=== PATIENT | female | born 1945 | race Caucasian/White ===

== ENCOUNTER 2017-03-07 10:37 | Emergency (ER) | payer MEDICARE ==
[~2017-03-07] VITALS: Ht 167.6 cm; Wt 53.0 kg
[2017-03-07 10:41] VITALS: BP 114/72; PULSE 80; RESP 15; TEMP 97.9; O2SAT 98
[2017-03-07] MEDS ORDERED: ESCI10TA PO (10:44)
--- NOTE | 2017-03-07 11:38 | PD ---
HPI Chief Complaint: Psychiatric Symptoms Time Seen by Provider: 11:38 Travel History International Travel<30 days: No Contact w/Intl Traveler<30days: No Traveled to known affect area: No History of Present Illness HPI 71-year-old female brought in by her [id number] and friend with reports of generalized weakness, depression, and question suicidality. Patient was seen by her primary care doctor Dr. Rossi on Saturday and started on Lexapro 10 mg daily. Patient has history of dealing with her who was recently diagnosed with cancer 2 months ago, was just moved to hospice in the skilled nursing in the last week. Patient has not been eating or sleeping, and has become more and more despondent. Patient denies any chronic medical issues. Her only medication is Lexapro. She is Vegan, but has not been eating as she has no appetite. Patient denies any fever, chills, headache, syncope, abdominal pain other than mild nausea, no diarrhea or urinary symptoms. She has no chest pain or shortness of breath. Patient and caregivers explained that patient had similar episode 13 years ago when her brother had medical issues. She denies suicidality at this time, but caregivers are concerned about her, and feel that she may be. She has no known drug allergies. PFSH Past Medical History ?: Not Social History Alcohol Use: No Tobacco Use: No Substance Use: No Allergies-Medications (Allergen,Severity, Reaction): Coded Allergies: No Known Allergies (Unverified , 03/07/17) Reported Meds & Prescriptions Reported Meds & Active Scripts Active Reported Escitalopram (Escitalopram Oxalate) 10 Mg Tab 10 Mg PO DAILY Review of Systems Except as stated in HPI: all other systems reviewed are Neg General / Constitutional: No: Fever, Chills Eyes: No: Visual changes HENT: No: Headaches Cardiovascular: No: Chest Pain or Discomfort Respiratory: No: Shortness of Breath Gastrointestinal: No: Abdominal Pain Genitourinary: No: Dysuria Musculoskeletal: No: Pain Skin: No Rash Neurologic: Positive: Weakness (generalized) Psychiatric: Positive: Depression, Other (desponded and), No: Homicidal Ideation Endocrine: No: Polydipsia Hematologic/Lymphatic: No: Easy Bruising Physical Exam Narrative GENERAL: Patient appears weak and pale SKIN: Warm and dry. Poor turgor. Mild to moderate tenting. Moderate pallor. HEAD: Atraumatic. Normocephalic. EYES: Pupils equal and round. No scleral icterus. No injection or drainage. ENT: No nasal bleeding or discharge. Mucous membranes pink and moist. Pharynx is clear. Airway is patent. NECK: Trachea midline. No JVD. CARDIOVASCULAR: Regular rate and rhythm. No murmurs gallops or rubs. RESPIRATORY: No accessory muscle use. Clear to auscultation. Breath sounds equal bilaterally. GASTROINTESTINAL: Abdomen soft, non-tender, nondistended. Hepatic and splenic margins not palpable. MUSCULOSKELETAL: Extremities without clubbing, cyanosis, or edema. No obvious deformities. NEUROLOGICAL: Awake and alert. No obvious cranial nerve deficits. Motor grossly within normal limits. Five out of 5 muscle strength in the arms and legs. Normal speech. PSYCHIATRIC: Patient appears despondent, with obvious lack of self-care. Patient has poor eye contact, and has dulled and slowed reaction. Data Data Last Documented VS Vital Signs Date Time Temp Pulse Resp B/P Pulse Ox O2 Delivery O2 Flow Rate FiO2 03/07/17 12:30 99 Room Air 03/07/17 10:41 97.9 80 15 114/72 Orders Electrocardiogram (03/07/17 11:50) Complete Blood Count With Diff (03/07/17 11:50) Comprehensive Metabolic Panel (03/07/17 11:50) Magnesium (Mg) (03/07/17 11:50) Ckmb (Isoenzyme) Profile (03/07/17 11:50) Troponin I (03/07/17 11:50) Act Partial Throm Time (Ptt) (03/07/17 11:50) Prothrombin Time / Inr (Pt) (03/07/17 11:50) Urinalysis - C+S If Indicated (03/07/17 11:50) Chest, Single Ap (03/07/17 11:50) Ecg Monitoring (03/07/17 11:50) Iv Access Insert/Monitor (03/07/17 11:50) Oximetry (03/07/17 11:50) Sodium Chloride 0.9% Flush (Ns Flush) (03/07/17 12:00) Sodium Chlor 0.9% 1000 Ml Inj (Ns 1000 M (03/07/17 11:50) Psych Screen (03/07/17 13:38) Diet Regular Basic (03/07/17 Lunch) Labs Laboratory Tests Test 03/07/17 03/07/17 03/07/17 12:20 12:30 13:15 White Blood Count 8.2 TH/MM3 Red Blood Count 4.57 MIL/MM3 Hemoglobin 14.3 GM/DL Hematocrit 41.2 % Mean Corpuscular Volume 90.1 FL Mean Corpuscular Hemoglobin 31.2 PG Mean Corpuscular Hemoglobin 34.6 % Concent Red Cell Distribution Width 12.4 % Platelet Count 246 TH/MM3 Mean Platelet Volume 8.9 FL Neutrophils (%) (Auto) 73.9 % Lymphocytes (%) (Auto) 18.6 % Monocytes (%) (Auto) 6.4 % Eosinophils (%) (Auto) 0.7 % Basophils (%) (Auto) 0.4 % Neutrophils # (Auto) 6.0 TH/MM3 Lymphocytes # (Auto) 1.5 TH/MM3 Monocytes # (Auto) 0.5 TH/MM3 Eosinophils # (Auto) 0.1 TH/MM3 Basophils # (Auto) 0.0 TH/MM3 CBC Comment DIFF FINAL Differential Comment Sodium Level 138 MEQ/L Potassium Level 4.3 MEQ/L Chloride Level 103 MEQ/L Carbon Dioxide Level 27.1 MEQ/L Anion Gap 8 MEQ/L Blood Urea Nitrogen 12 MG/DL Creatinine 0.73 MG/DL Estimat Glomerular Filtration 79 ML/MIN Rate Random Glucose 87 MG/DL Calcium Level 8.9 MG/DL Magnesium Level 2.3 MG/DL Total Bilirubin 0.7 MG/DL Aspartate Amino Transf 19 U/L (AST/SGOT) Alanine Aminotransferase 13 U/L (ALT/SGPT) Alkaline Phosphatase 116 U/L Total Creatine Kinase 47 U/L Troponin I LESS THAN 0.02 NG/ML Total Protein 6.6 GM/DL Albumin 3.7 GM/DL Urine Color YELLOW Urine Turbidity HAZY Urine pH 6.5 Urine Specific [place] 1.019 Urine Protein TRACE mg/dL Urine Glucose (UA) NEG mg/dL Urine Ketones 10 mg/dL Urine Occult Blood TRACE Urine Nitrite NEG Urine Bilirubin NEG Urine Urobilinogen LESS THAN 2.0 MG/DL Urine Leukocyte Esterase TRACE Urine RBC 2 /hpf Urine WBC 3 /hpf Urine Squamous Epithelial 1 /hpf Cells Urine Mucus MANY /lpf Microscopic Urinalysis Comment CULT NOT INDICATED Prothrombin Time 11.3 SEC Prothromb Time International 1.0 RATIO Ratio Activated Partial 24.3 SEC Thromboplast Time MDM Medical Decision Making Medical Screen Exam Complete: Yes Emergency Medical Condition: Yes Differential Diagnosis Emotional fatigue. Depression. Suicidal ideation. Anemia. Dehydration. Narrative Course Patient is felt to be medically stable at time of exam. Labs ordered including CT, CMP, cardiac panel, PT PTT and INR, urinalysis. EKG and chest x-ray are ordered. IV access is obtained patient is given 1000 mL normal saline bolus. CBC is unremarkable. Chest x-ray is unremarkable for acute process per radiologist. EKG shows normal sinus rhythm without significant acute changes. This reviewed with Dr. Walton. CMP, cardiac panel, PT PTT and INR, and urinalysis are all within normal limits. Patient is cleared for psychiatric evaluation. Diagnosis Primary Impression: Depression Qualified Code: F32.9 - Reactive depression Additional Impression: Medical clearance for psychiatric admission Condition: Stable Jose G Alonso Mar 07, 2017 11:38
[2017-03-07] MEDS ORDERED: SODIUM CHLOR 0.9% 1000 ML INJ 1,000 ML IV ONE (11:50)
[2017-03-07] MEDS ORDERED: SODIUM CHLORIDE 0.9% FLUSH 10 ML FLUSH IVF PRN (12:00)
[2017-03-07 12:30] VITALS: O2SAT 99
--- NOTE | 2017-03-07 12:33 | RADRPT ---
EXAM DATE/TIME: 03/07/2017 12:07 [facility] COMPARISON: No previous studies available for comparison. INDICATIONS : Palpitations, no appetite MEDICAL HISTORY : None. SURGICAL HISTORY : None. ENCOUNTER: Initial ACUITY: 1 day PAIN SCORE: 0/10 LOCATION: Bilateral chest FINDINGS: The heart and mediastinal structures are normal. The pulmonary vascular pattern is normal. The lung s are clear. Degenerative changes and scoliosis of the thoracic spine are noted. CONCLUSION: 1. No acute cardiopulmonary disease. 2. Degenerative changes and scoliosis of the thoracic spine. Cash Urrutia MD on March 07, 2017 at 12:12 Board Certified Radiologist. This report was verified electronically.
[2017-03-07 12:56] LABS: BASOPHIL % 0.4 % (0.0-2.0); EOSINOPHIL # 0.1 TH/MM3 (0-0.4); EOSINOPHIL % 0.7 % (0.0-4.0); HEMATOCRIT 41.2 % (35.0-46.0); HEMO FLAGS DIFF FINAL; LYMPH % 18.6 % (9.0-44.0); LYMPHOCYTE # 1.5 TH/MM3 (1.0-4.8); MEAN CELL VOLUME 90.1 FL (80.0-100.0); MEAN CORPUSCULAR HEMOGLOBIN 31.2 PG (27.0-34.0); MEAN CORPUSCULAR HGB CONC 34.6 % (32.0-36.0); MONO % 6.4 % (0.0-8.0); NEUT % 73.9 % (16.0-70.0); PLATELET COUNT 246 TH/MM3 (150-450); RED BLOOD COUNT 4.57 MIL/MM3 (4.00-5.30); RED CELL DISTRIBUTION WIDTH 12.4 % (11.6-17.2); WHITE BLOOD COUNT 8.2 TH/MM3 (4.0-11.0)
[2017-03-07 13:16] LABS: ALKALINE PHOSPHATASE 116 U/L (45-117); ALT (GPT) 13 U/L (10-53); ANION GAP 8 MEQ/L (5-15); AST (GOT) 19 U/L (15-37); BICARBONATE 27.1 MEQ/L (21.0-32.0); BLOOD UREA NITROGEN 12 MG/DL (7-18); CHLORIDE 103 MEQ/L (98-107); GLOMERULAR FILTRATION RATE 79 ML/MIN (>89); MAGNESIUM 2.3 MG/DL (1.5-2.5); SODIUM (NA) 138 MEQ/L (136-145); TOTAL BILIRUBIN ADULT 0.7 MG/DL (0.2-1.0)
[2017-03-07 13:17] LABS: CREATINE KINASE 47 U/L (26-192); POTASSIUM 4.3 MEQ/L (3.5-5.1)
[2017-03-07 13:20] LABS: BLOOD, URINE TRACE (NEG); COMMENT (UR) CULT NOT INDICATED; CULTURE IF INDICATED CULT NOT INDICATED; GLUCOSE,URINE NEG (NEG); KETONE, URINE 10 mg/dL (NEG); MUCUS URINE MANY /lpf (OCC); NITRITE,URINE NEG (NEG); PH, URINE 6.5 (5.0-8.5); SQUAMOUS EPITHELIAL CELL URINE 1 /hpf (0-5); URINE COLOR YELLOW (YELLW/STRAW)
[2017-03-07 13:49] LABS: APTT (PATIENT) 24.3 SEC (24.3-30.1); PROTHROMBIN TIME - PATIENT 11.3 SEC (9.8-11.6)
[2017-03-07 15:52] VITALS: BP 117/68; PULSE 74; RESP 16; O2SAT 98
[2017-03-07 19:00] VITALS: BP 127/71; PULSE 99; RESP 16
[2017-03-07 22:00] VITALS: BP 133/58; PULSE 94; RESP 18; O2SAT 97
[2017-03-08 02:24] VITALS: BP 114/74; PULSE 75; RESP 18; O2SAT 98
[2017-03-08 06:00] VITALS: BP 119/67; PULSE 79; RESP 18; O2SAT 97
--- NOTE | 2017-03-08 09:31 | PD.CONS ---
Provisional Diagnosis Admission Date [place] I. Adjustment disorder with depressed mood [place] II. deferred [place] III. Osteoporosis [place] IV. was recently diagnosed with terminal cancer [place] V. 55 History of Present Illness Service Psychiatry Consult Requested By Primary Care Physician Maris Wolf MD HPI The patient is a 71-year-old woman, domiciled in the [facility] with her , was recently diagnosed with terminal cancer, retired, with psychiatric history of depression, 1 previous suicidal attempts, one previous psychiatric hospitalization, she is on Lexapro 10 mg prescribed by PCP, medical history of osteoporosis, who was brought in by her [id number] and friend with reports of generalized weakness, depression, and question suicidality. Patient was seen by her primary care doctor Dr. Rossi on Saturday and started on Lexapro 10 mg daily. Patient has history of dealing with her who was recently diagnosed with terminal cancer 2 months ago, was just moved to hospice in the custodial in the last week. As per collateral information from Liset Villatoro, sister in [facility], contacted by me by phone, the patient has not been eating or sleeping, has not been eating enough, has been very depressed, and has voiced that she preferred to be definitely. Family member has become very concerned because patient in the past when her brother was diagnosed with a similar cancer tried to commit suicide by overdose and was hospitalized for about 4 days. Patient has been in a lot of stress in the last 3 weeks. On psychiatric evaluation today patient is found sleeping in her room , calm and cooperative, very pleasant. Patient states that she has been feeling very sad everyday and feeling very angry with life for the last 6 weeks since her was diagnosed with cancer, but especially in the last 3 weeks with her has decided not to pursue treatment and be transferred to hospice. Patient stated that she has had the same sensation she had 13 years ago when her only brother was also diagnosed with cancer and she felt desperate and overdosed. However, she says that she will never do that, she doesn't want to , she says that she has many good years ahead to live, but she cannot avoid to feel sad and the situation. She denies hopelessness, she denies helplessness, she denies worthlessness, she reports poor appetite, but at same time she says that she is a poor eater anyway. Her sleep was disrupted a couple weeks ago, but in the last days she has been sleeping better. She denies suicidal and homicidal ideation. She denies visual and auditory hallucinations. She also says that she things that she is learning how to accept the diagnosis of her and the fact that he is going to soon, "and I want to be with him, helping him". Patient is fully oriented 3, without any attention deficit, without fluctuation of consciousness, no gross cognitive impairment is observed. No agitation, aggressive behavior, paranoia or delusion observed. Patient denies the use of drugs and alcohol. Review of Systems Constitutional: DENIES: Diaphoretic episodes, Fatigue, Fever, Weight gain, Weight loss, Chills, Dizziness, Change in appetite, Night Sweats Endocrine: DENIES: Abnorml menstrual pattern, Heat/cold intolerance, Polydipsia , Polyuria, Polyphagia Eyes: DENIES: Blurred vision, Diplopia, Eye inflammation, Eye pain, Vision loss , Photosensitivity, Double Vision Ears, nose, mouth, throat: DENIES: Tinnitus, Hearing loss, Vertigo, Nasal discharge, Oral lesions, Throat pain, Hoarseness, Ear Pain, Running Nose, Epistaxis, Sinus Pain, Toothache, Odynophagia Cardiovascular: DENIES: Chest pain, Palpitations, Syncope, Dyspnea on Exertion , PND, Lower Extremity Edema, Orthopnea, Claudication Gastrointestinal: DENIES: Abdominal pain, Black stools, Bloody stools, Constipation, Diarrhea, Nausea, Vomiting, Difficulty Swallowing, Anorexia Musculoskeletal: DENIES: Joint pain, Muscle aches, Stiffness, Joint Swelling, Back pain, Neck pain Integumentary: DENIES: Abnormal pigmentation, Pruritus, Rash, Nail changes, Breast masses, Breast skin changes, Nipple discharge Hematologic/lymphatic: DENIES: Bruising, Lymphadenopathy Immunologic/allergic: DENIES: Eczema, Urticaria Neurologic: DENIES: Abnormal gait, Headache, Localized weakness, Paresthesias, Seizures, Speech Problems, Tremor, Poor Balance Psychiatric: DENIES: Anxiety, Confusion, Mood changes, Depression, Hallucinations, Agitation, Suicidal Ideation, Homicidal Ideation, Delusions Past Family Social History Coded Allergies: No Known Allergies (Unverified , 03/07/17) Reported Medications Escitalopram 10 Mg Tab10 Mg PO DAILY #30 TAB Ref 0 03/07/17 Current Medications Medications (Trade) Dose Ordered Sig/Usama Route Start Time Stop Time Status Last Admin (NS Flush) 2 ml UNSCH PRN IVF 03/07/17 12:00 Family History She denies Social History Patient was born and raised in [place], she has been living in [place] for 20 years, she lives in [facility] with her , she has no kids, she has some family members around, highest level of education is high school Patient's Strengths (min. 2) Family support, verbal communication Physical Exam On physical exam no psychomotor retardation or agitation, no tremors, no EPS, no rigidity or stiffness, no visible skin rash or lesions, no eyes problems, no gait abnormalities Vital Signs Vital Signs Date Time Temp Pulse Resp B/P Pulse Ox O2 Delivery O2 Flow Rate FiO2 03/08/17 06:00 79 18 119/67 97 Room Air 03/07/17 10:41 97.9 Lab Results Toxicology is negative Mental Status Examination Appearance woman, age appearing, good hygiene, [employer], she is calm, cooperative and pleasant Speech: Unremarkable, Slow Orientation: x3 Memory: Remote Thought Process: Logical, Linear Thought Content: Unremarkable Hallucination Type: None Suicidal Ideation: No Previous Suicide Attempts: Yes Homicidal Ideation: No Judgment: WNL Affect: Euthymic Mood: Appropriate Motor Activity: Normal gait Assessment & Plan Problem List: (1) Adjustment disorder with depressed mood Assessment & Plan: On psychiatric evaluation today the patient reports about 6 weeks of basic daily sadness, frequent crying spells, episodes of hopelessness and helplessness, frustration and anger, frequent anxiety, poor appetite, disrupted sleep in the context of the diagnosis of terminal cancer in her . Patient has expressed suicidal thoughts, but no intention to . Patient was started on Lexapro 10 mg by PCP. [id number]'s high risk concerned because in the past patient has tried to commit suicide in a very similar situation. Even though I understand the patient may have difficulties dealing with stressful situation and she could be a poor coper, depressive symptoms in the situations are absolutely normal and expected and are part of the mourning process. Patient does not meet criteria for psychiatric admission at this moment. Patient would benefit of close monitoring by a mental health professional in outpatient basis and most probably increasing Lexapro to 20 mg. A referral will be given to her. Extensive psychoeducation, motivation and support was provided. Safety plan was discussed with the patient and also with [id number]. Both, verbalized agreement and understanding with plan. Patient was finally discharged back home with her [id number]. ICD Code: F43.21 Assessment & Plan Estimated LOS: days Malikc Christy MD Mar 08, 2017 09:31
--- NOTE | 2017-03-08 18:46 | EKG ---
Date Performed: 03/07/2017 Time Performed: 12:11:09 PTAGE: 71 years EKG: Sinus rhythm NORMAL ECG INTERPRETATION BASED ON A DEFAULT AGE OF 40 YEARS NO PREVIOUS TRACING DOCTOR: David Sanchez Interpretating Date/Time 03/08/2017 18:41:00
== END 2017-03-08 11:45 | disposition home or self-care (01) ==
LOC: NEPE 10:37 → NEPJ 03-08 11:45
DX: F32.9 Major depressive disorder, single episode, unspecified (principal); F43.21 Adjustment disorder with depressed mood; R53.1 Weakness
CPT/HCPCS: 71010; 80053; 81001; 82550; 83735; 84484; 85025; 85610; 85730; 93005; 96360; 99285; J7030

== ENCOUNTER 2017-03-10 10:59 | Inpatient (IN) | payer MEDICARE ==
[~2017-03-10] VITALS: Ht 167.6 cm; Wt 52.3 kg
[~2017-03-10 10:59] MED LIST: ESCI10TA PO
[2017-03-10 11:01] VITALS: BP 135/73; PULSE 78; RESP 16; TEMP 97.6; O2SAT 99
[2017-03-10 14:20] VITALS: BP 132/72; PULSE 75; RESP 16; O2SAT 99
--- NOTE | 2017-03-10 14:46 | PD ---
HPI Chief Complaint: Psychiatric Symptoms Time Seen by Provider: 12:11 Travel History International Travel<30 days: No Contact w/Intl Traveler<30days: No Traveled to known affect area: No History of Present Illness HPI Patient is a 71-year-old female presents emergency department today for depression. Apparently the patient's was just diagnosed with terminal cancer and has been placed in a hospice facility and she's been quite depressed over this. The family relates to me that something very similar happen to her in the past 1 another relative became very sick. The patient was actually evaluated by psychiatry earlier this week was started on Lexapro and instructions to come back if she felt increasingly depressed or suicidal. Patient denies any suicidal or homicidal ideations. The family states that she is looking for something that will cure her quickly. Patient denies any physical complaints denies any chest pain abdominal pain nausea vomiting diarrhea headaches extremity pain. PFSH Past Medical History Depression: Yes Social History Alcohol Use: No Tobacco Use: No Substance Use: No (PT DENIES) Allergies-Medications (Allergen,Severity, Reaction): Coded Allergies: No Known Allergies (Unverified , 03/10/17) Reported Meds & Prescriptions Reported Meds & Active Scripts Active Reported Escitalopram (Escitalopram Oxalate) 10 Mg Tab 10 Mg PO DAILY Review of Systems Except as stated in HPI: all other systems reviewed are Neg Physical Exam Narrative GENERAL: Well-developed but thin in no apparent distress. SKIN: Focused skin assessment warm/dry. HEAD: Atraumatic. Normocephalic. EYES: Pupils equal and round. No scleral icterus. No injection or drainage. ENT: No nasal bleeding or discharge. Mucous membranes pink and moist. NECK: Trachea midline. No JVD. CARDIOVASCULAR: Regular rate and rhythm. No murmur appreciated. RESPIRATORY: No accessory muscle use. Clear to auscultation. Breath sounds equal bilaterally. GASTROINTESTINAL: Abdomen soft, non-tender, nondistended. Hepatic and splenic margins not palpable. MUSCULOSKELETAL: No obvious deformities. No clubbing. No cyanosis. No edema. NEUROLOGICAL: Awake and alert. No obvious cranial nerve deficits. Motor grossly within normal limits. Normal speech. PSYCHIATRIC: Depressed mood, depressed affect; insight and judgment normal. No suicidal homicidal ideation Data Data Last Documented VS Vital Signs Date Time Temp Pulse Resp B/P Pulse Ox O2 Delivery O2 Flow Rate FiO2 03/10/17 14:20 75 16 132/72 99 Room Air 03/10/17 11:01 97.6 Orders Psych Screen (03/10/17 12:20) Admit Order (Ed Use Only) (03/10/17 ) Admit To Inpatient Psych (03/10/17 ) Code Status (03/10/17 19:31) Vital Signs (Adult) AGUSTINA.Q12H.E (03/10/17 19:31) Activity Oob Ad Veena (03/10/17 19:31) Level Of Observation (Psych) (03/10/17 19:31) Acetaminophen (Tylenol) (03/10/17 20:00) Magnesium Hydroxide Liq (Milk Of Magnesi (03/10/17 20:00) Al-Mag Hy-Si 40-40-4 Mg/Ml Liq (Mag-Al P (03/10/17 20:00) Basic Metabolic Panel (Bmp) (03/11/17 06:00) Lipid Profile (03/11/17 06:00) Hemoglobin (Hgb) A1c (03/11/17 06:00) MDM Medical Decision Making Medical Screen Exam Complete: Yes Emergency Medical Condition: Yes Differential Diagnosis Depression, adjustment disorder, bipolar Narrative Course Patient 71-year-old female presents to the primary for depression. Patient has a history that her was recently diagnosed with terminal cancer and she' s been depressed over this. She was recently seen by psych and told to come back of her symptoms have been worse. Patient has been very low functioning at home has been anhedonic and not been functioning well or eating well. She is here with her family members who would like her to seem psychiatry per she is here voluntary status. Denies any suicidal or homicidal ideations. Patient denies blood work at this time. Patient does not meet Huerta act criteria and I would consider a battery to force her into blood work. I have tried to talk her into which she declines. She was here yesterday and did have blood work yesterday and I doubt that a significant change from then. She does not have any physical complaints and wants further workup at this time. Patient ismedically cleared for psychiatric evaluation and disposition. Diagnosis Primary Impression: Adjustment disorder with depressed mood Condition: Stable Cash Herman MD Mar 10, 2017 14:46
[2017-03-10] MEDS ORDERED: MAGNESIUM HYDROXIDE SUSP 30 ML CUP PO PRN (20:00)
[2017-03-10] MEDS ORDERED: ALUMINUM/MAGNESIUM/SIMETH 30 ML CUP PO PRN (20:00)
[2017-03-10] MEDS ORDERED: ACETAMINOPHEN 325 MG TAB PO PRN (20:00)
[2017-03-10 20:10] VITALS: BP 153/75; PULSE 61; RESP 18; TEMP 98; O2SAT 100
[2017-03-11 05:00] VITALS: BP_SYST 102; BP_SYST 126; BP_DIAS 72; BP_DIAS 76; PULSE 73; PULSE 85; RESP 18; TEMP 97.8; TEMP 98; O2SAT 96
--- NOTE | 2017-03-11 16:20 | HHI.HP ---
Provisional Diagnosis Admission Date Mar 10, 2017 at 19:33 [place]. Adjustment disorder with mixed disturbance of emotion and conduct. Certification of Person's Competence To Provide Express and Informed Consent I have personally examined Rosa Villatoro , a person being served at [facility] on, Mar 11, 2017 16:12. Express and informed consent means consent voluntarily given in writing, by a competent person, after sufficient explanation and disclosure of the subject matter involved to enable the person to make a knowing and willful decision without any element of force, fraud, deceit, duress, or other form of constraint or coercion. This person is 18 years of age or older, is not now known to be incompetent to consent to treatment with a guardian advocate, and does not have a health care surrogate or proxy currently making medical treatment decisions. I have found this person to be one of the following: [X] Competent to provide express and informed consent, as defined above, for voluntary admission to this facility and is competent to provide express and informed consent for treatment. He/she has the consistent capacity to make well reasoned, willful, and knowing decisions concerning his or her medical or mental health treatment. The person fully and consistently understands the purpose of the admission for examination/placement and is fully capable of personally exercising all rights assured [place] Incompetent to provide express and informed consent to voluntary admission, and this is incompetent to provide express and informed consent to treatment. The person must be transferred to involuntary status and a petition for a guardian advocate filed with the Circuit Court. [] Refusing to provide express and informed consent to voluntary admission but is competent to provide express and informed consent for treatment. The person must be discharged or transferred to involuntary status. Form shall be completed within 24 hours of a person's arrival at the receiving facility and filed in the clinical record of each person: 1. Admitted on a voluntary basis 2. Permitted to provide express and informed consent to his/her own treatment 3. Allowed to transfer from involuntary to voluntary status 4. Prior to permitting a person to consent to his or her own treatment after having been previously found incompetent to consent to treatment. History of Present Illness Capacity: Has Capacity HPI This is a 71-year-old female whose was recently moved to hospice for terminal cancer, admitted voluntarily for inability to care for herself. She was encouraged to sign herself into the hospital by her family, even though she is not suicidal or homicidal. Additionally, she started Lexapro approximately 10 days ago but has not given it time to work. She was on Lexapro some years ago and it did work so this physician wants to restart her as soon as possible. Patient acknowledges symptoms of depressed mood, anhedonia, anxiety, social withdrawal, diminished energy, decreased self-esteem, impaired concentration, initial and middle insomnia, etc. According to patient's family, she has also become depressed and lost her energy when another relative in the past. Patient does not have a history of alcohol or drug abuse. She does repeatedly want to speak with this physician to make sure this physician knows everything that is wrong with her. Review of Systems ROS Limitations: Clinical Condition Past Psych History Psychological trauma history Denied Violence risk - others (6 mos) Minimal Violence risk - self (6 mos) Minimal Substance Abuse History Drugs/Alcohol past 12 months Denied Past Family Social History Coded Allergies: No Known Allergies (Unverified , 03/10/17) Reported Medications Escitalopram 10 Mg Tab10 Mg PO DAILY #30 TAB Ref 0 03/07/17 Current Medications Medications (Trade) Dose Ordered Sig/Usama Route Start Time Stop Time Status Last Admin (Tylenol) 650 mg Q4H PRN PO 03/10/17 20:00 (Milk Of Magnesia Liq) 30 ml DAILY PRN PO 03/10/17 20:00 (Mag-Al Plus Susp Liq) 30 ml Q6H PRN PO 03/10/17 20:00 Family History Positive for anxiety disorders. Social History for 50+ years. dying of terminal cancer. Patient does not have history of alcohol or substance abuse. Patient's Strengths (min. 2) Verbal and has access to healthcare. Physical Exam GENERAL: SKIN: Warm and dry. HEAD: Normocephalic. EYES: No scleral icterus. No injection or drainage. NECK: Supple, trachea midline. No JVD or lymphadenopathy. CARDIOVASCULAR: Regular rate and rhythm without murmurs, gallops, or rubs. RESPIRATORY: Breath sounds equal bilaterally. No accessory muscle use. GASTROINTESTINAL: Abdomen soft, non-tender, nondistended. MUSCULOSKELETAL: No cyanosis, or edema. BACK: Nontender without obvious deformity. No CVA tenderness. Vital Signs Vital Signs Date Time Temp Pulse Resp B/P Pulse Ox O2 Delivery O2 Flow Rate FiO2 03/11/17 05:00 97.8 85 18 126/76 03/11/17 05:00 96 03/10/17 14:20 Room Air Mental Status Examination Speech: Unremarkable Orientation: x3 Memory: Unremarkable Thought Process: Organized, Goal Directed Thought Content: Unremarkable Hallucination Type: None Attention and Concentration: Good Suicidal Ideation: No Previous Suicide Attempts: Yes Homicidal Ideation: No Previous Homicide Attempts: No Insight: Fair Judgment: WNL Affect: Anxious, Sad Mood: Sad, Anxious Motor Activity: Normal gait Assessment & Plan Problem List: (1) Adjustment disorder with mixed disturbance of emotions and conduct ICD Code: F43.25 Assessment & Plan Estimated LOS: 3 days patient to be restarted on Lexapro 10 mg per day and increase to 20 mg by time of discharge. She will be engaged in individual, group therapies. Family to be contacted for additional information. Patient to have EKG workup to prevent cardiac conduction difficulties from psychotropic medicines. This physician spoke with the nurse regarding the patient's depression and behavior. boom worker will be asked to gather information from family. William Alvarado MD Mar 11, 2017 16:20
[2017-03-11] MEDS: ESCITALOPRAM OXALATE 10 MG TAB PO SCH (17:21)
[2017-03-11 18:00] VITALS: BP 121/74; PULSE 74; RESP 16; TEMP 97.4; O2SAT 98
[2017-03-12 05:34] VITALS: BP 118/66; PULSE 77; RESP 18; TEMP 98.1
[2017-03-12] MEDS: ESCITALOPRAM OXALATE 10 MG TAB PO SCH (08:32)
[2017-03-12 20:00] VITALS: BP 120/78; PULSE 101; RESP 18; TEMP 97.8
[2017-03-13 06:06] VITALS: BP 125/62; PULSE 75; RESP 18; TEMP 97.8; O2SAT 98
[2017-03-13] MEDS: ESCITALOPRAM OXALATE 10 MG TAB PO SCH (08:38)
--- NOTE | 2017-03-13 14:18 | HHI.PYPN ---
Subjective Remarks This is a psychiatric progress note for 03/12/2017. Patient remains depressed and anxious. She has a hard time not asking this physician multiple questions over and over. She remains unable to care for herself and cannot be left alone. Review of Systems ROS Limitations: Clinical Condition Objective Alert: Yes [place]: Person, Place, Date, Situation Mood: Calm Affect: Euthymic Memory Intact: Immediate, Recent, Remote Hallucinations: Other Delusions: Yes Delusion Type: Paranoid, Other Suicidal: Ideation Homicidal: Ideation Insight/Judgment Impaired Vitals/IOs Vital Signs Date Time Temp Pulse Resp B/P Pulse Ox O2 Delivery O2 Flow Rate FiO2 03/13/17 06:06 97.8 75 18 125/62 98 03/10/17 14:20 Room Air Assessment & Plan Problem List: (1) Adjustment disorder with mixed disturbance of emotions and conduct ICD Code: F43.25 Assessment & Plan Estimated LOS: 3 days patient needs more time on medication to stabilize mood and anxiety. Justification for Cont. Inpt. Depressed and unable to care for self. Likely decompensate with lower level of care. William Alvarado MD Mar 13, 2017 14:17
--- NOTE | 2017-03-13 14:19 | HHI.PYPN ---
Subjective Remarks This is the progress note for 03/13/2017. Patient is less depressed but does appear to be quite anxious still. She is very concerned about where she will go from here and continues to feel unable to care for herself. Review of Systems ROS Limitations: Clinical Condition Objective Alert: Yes [place]: Person, Place, Date, Situation Mood: Calm Affect: Euthymic Memory Intact: Immediate, Recent, Remote Hallucinations: Other Delusions: Yes Delusion Type: Paranoid, Other Suicidal: Ideation Homicidal: Ideation Insight/Judgment Impaired Vitals/IOs Vital Signs Date Time Temp Pulse Resp B/P Pulse Ox O2 Delivery O2 Flow Rate FiO2 03/13/17 06:06 97.8 75 18 125/62 98 03/10/17 14:20 Room Air Assessment & Plan Problem List: (1) Adjustment disorder with mixed disturbance of emotions and conduct ICD Code: F43.25 Assessment & Plan Estimated LOS: 2 days patient was interviewed by assisted. If she is accepted there, she can certainly step down to that level of care. Medicines to be continued. Justification for Cont. Inpt. Unable to care for self and will decompensate without direct supervision and assistance. William Alvarado MD Mar 13, 2017 14:19
[2017-03-13 18:30] VITALS: BP 125/68; PULSE 75; RESP 16; TEMP 98.4; O2SAT 98
[2017-03-14 06:23] VITALS: BP 114/66; PULSE 73; RESP 16; TEMP 97; O2SAT 97
[2017-03-14] MEDS: ESCITALOPRAM OXALATE 10 MG TAB PO SCH (07:59)
--- NOTE | 2017-03-14 15:17 | HHI.PYPN ---
Subjective Remarks Continues to appear anxious and is easily upset. Indecisive. Socially withdrawn. Multiple somatic concerns. Review of Systems ROS Limitations: Clinical Condition Objective Alert: Yes [place]: Person, Place, Date, Situation Mood: Calm Affect: Euthymic Memory Intact: Immediate, Recent, Remote Hallucinations: Other Delusions: Yes Delusion Type: Paranoid, Other Suicidal: Ideation Homicidal: Ideation Insight/Judgment Impaired. Vitals/IOs Vital Signs Date Time Temp Pulse Resp B/P Pulse Ox O2 Delivery O2 Flow Rate FiO2 03/14/17 06:23 97.0 73 16 114/66 97 03/10/17 14:20 Room Air Assessment & Plan Problem List: (1) Adjustment disorder with mixed disturbance of emotions and conduct ICD Code: F43.25 Assessment & Plan Estimated LOS: 1 days patient still needs more time responding to antidepressant therapy. Justification for Cont. Inpt. Will decompensate at a lower level of care. William Alvarado MD Mar 14, 2017 15:16
[2017-03-14 19:17] VITALS: BP 117/65; PULSE 80; RESP 16; TEMP 98; O2SAT 98
[2017-03-15 05:18] VITALS: BP 127/65; PULSE 67; RESP 16; TEMP 97.9; O2SAT 96
[2017-03-15] MEDS: ESCITALOPRAM OXALATE 10 MG TAB PO SCH (08:36)
--- NOTE | 2017-03-15 11:02 | HHI.PYPN ---
Subjective Remarks Patient irritable, with multiple complaints, dismissive towards this physician and yet then wants more attention. This physician finds much of the patient's depression is related to personality conflicts. Review of Systems ROS Limitations: Clinical Condition Objective Alert: Yes [place]: Person, Place, Date, Situation Mood: Calm Affect: Euthymic Memory Intact: Immediate, Recent, Remote Hallucinations: Other Delusions: Yes Delusion Type: Paranoid, Other Suicidal: Ideation Homicidal: Ideation Insight/Judgment Impaired Vitals/IOs Vital Signs Date Time Temp Pulse Resp B/P Pulse Ox O2 Delivery O2 Flow Rate FiO2 03/15/17 05:18 97.9 67 16 127/65 96 Assessment & Plan Problem List: (1) Adjustment disorder with mixed disturbance of emotions and conduct ICD Code: F43.25 Assessment & Plan Estimated LOS: days continue antidepressant therapy. Justification for Cont. Inpt. Likely to decompensate at lower level of care. William Alvarado MD Mar 15, 2017 11:02
[2017-03-15] MEDS ORDERED: ESCI10TA PO (11:12)
--- NOTE | 2017-03-15 11:12 | HHI.DS ---
Psychiatry Discharge Summary Inpatient Psychiatric care?: Yes Advance Directive: No Reason Not Provided: REFUSED Mental Health AdvanceDirective: No Health Care Proxy: No Admission Admission Date Mar 10, 2017 at 19:33 Admission Diagnosis: (1) Adjustment disorder with mixed disturbance of emotions and conduct ICD Code: F43.25 Brief History This is a 71-year-old female whose was recently moved to hospice for terminal cancer, admitted voluntarily for inability to care for herself. She was encouraged to sign herself into the hospital by her family, even though she is not suicidal or homicidal. Additionally, she started Lexapro approximately 10 days ago but has not given it time to work. She was on Lexapro some years ago and it did work so this physician wants to restart her as soon as possible. Patient acknowledges symptoms of depressed mood, anhedonia, anxiety, social withdrawal, diminished energy, decreased self-esteem, impaired concentration, initial and middle insomnia, etc. According to patient's family, she has also become depressed and lost her energy when another relative in the past. Patient does not have a history of alcohol or drug abuse. She does repeatedly want to speak with this physician to make sure this physician knows everything that is wrong with her. Tobacco Use In Past 30 Days: No Tobacco Past 30 Days Alcohol Use: Never Hospital Course Patient engaged in individual and group therapies. No procedures were performed. She was started on medication. However, patient has significant personality issues that impede her ability to improve her emotional situation. Results Blood Pressure 127 / 65 Vital Signs Date Time Temp Pulse Resp B/P Pulse Ox O2 Delivery O2 Flow Rate FiO2 03/15/17 05:18 97.9 67 16 127/65 96 None pending Summary of Procedures None Pending results at discharge: No Medications # of Antipsychotic meds at D/C: 0 Approp Antipsych med options 1 - Minimum of three failed multiple trials of monotherapy. 2 - Documented plan to taper to monotherapy due to previous use of multiple meds OR cross-taper in progress at D/C. 3 - Documentation of augmentation of Clozapine. 4 - Justification other than those listed in allowable values 1-3, document here : Discharge Discharge Date: Mar 15, 2017 Discharge Diagnosis: (1) Adjustment disorder with mixed disturbance of emotions and conduct ICD Code: F43.25 Mental Status Exam at Disch At time of discharge patient had no suicidal or homicidal ideation, plan or intent. Cognition was intact and felt to be baseline. No psychotic symptoms and she was verbally angelina for safety. Pt Condition on Discharge: Stable Discharge Disposition: Discharge Home Discharge Instructions Diet Instructions: As Tolerated, No Restrictions Activities you can perform: Regular-No Restrictions Discharge Time <= 30 minutes Discharge/Advance Care Plan Health Problems: (1) Adjustment disorder with mixed disturbance of emotions and conduct Goals to promote your health * To prevent worsening of your condition and complications * To maintain your health at the optimal level Directions to meet your goals Take your medications as prescribed Follow your dietary instruction Follow activity as directed Keep your appointments as scheduled Take your immunizations and boosters as scheduled If your symptoms worsen call your PCP, if no PCP go to Urgent Care Center or Emergency Room For 10/06 questions related to your inpatient stay or results of tests pending at discharge, please contact Dr. William Alvarado at Smoking is Dangerous to Your Health. Avoid second hand smoking William Alvarado MD Mar 15, 2017 11:11
== END 2017-03-15 15:10 | DRG 882 ==
LOC: NEPD 10:59 → NEDA 19:33 → H260 20:10
PROVIDERS: ADMIT Psychiatry & Neurology Psychiatry; ATTEND Psychiatry & Neurology Psychiatry
DX: F43.25 Adjustment disorder with mixed disturbance of emotions and conduct (principal); F43.21 Adjustment disorder with depressed mood; Z79.899 Other long term (current) drug therapy
CPT/HCPCS: 99284